=== PATIENT | female | born 1955 | race Two or more races ===

== ENCOUNTER 2024-07-21 05:15 | Day surgery (SDC) | payer OTHER ==
[2024-07-15 14:19] VITALS: BP 123/65
[~2024-07-21] VITALS: Ht 162.6 cm; Wt 111.6 kg
[~2024-07-21 05:15] MED LIST: CARDURA XL4 MG PO; ELIQUIS5 MG PO; HYDROCHLOROTHIA25 MG PO; MICARDIS80 MG PO; ROSUVASTATIN CA20 MG PO; SYNTHROID100 MCG PO
[2024-07-21] MEDS ORDERED: POVIDONE-IODINE 118 ML BOTT TOP SCH (11:15)
[2024-07-21] MEDS ORDERED: SUGAMMADEX SODIUM 200 MG/2 ML VIAL IV SCH (11:15)
[2024-07-21] MEDS ORDERED: IBU600 MG PO (12:10)
[2024-07-21] MEDS ORDERED: MORPHINE SULFATE 4 MG/ML VIAL IV ONE (12:20)
== END 2024-07-21 14:05 | disposition home or self-care (01) ==
LOC: CIR.AMB 05:15
PROVIDERS: ATTEND Obstetrics & Gynecology Gynecology
DX: C54.1 Malignant neoplasm of endometrium (principal); N95.0 Postmenopausal bleeding

== ENCOUNTER 2024-09-29 11:30 | Inpatient (IN) | payer OTHER ==
[~2024-09-29] VITALS: Ht 160 cm; Wt 108.9 kg
[~2024-09-29 11:30] MED LIST changes: +IBU600 MG PO
[2024-09-29 12:28] VITALS: BP 127/87
[2024-09-29 12:34] VITALS: BP 118/68
[2024-09-29 12:51] LABS: COVID-19 AG NEGATIVE (NEGATIVE)
[2024-10-02] MEDS ORDERED: CEFAZOLIN SODIUM 1,000 MG VIAL IV ONE (09:00)
[2024-10-02] MEDS ORDERED: THROMBIN,HU/FIBRINOGEN/CALCIUM 10 ML SYRINGE TOP ONE (09:00)
[2024-10-02] MEDS ORDERED: VISTASEAL DUAL APPICATOR 1 EACH APPL TOP ONE (09:00)
[2024-10-02] MEDS ORDERED: METRONIDAZOLE/SODIUM CHLORIDE 500 MG/100 ML PIGGYBACK IV ONE (09:00)
[2024-10-02] MEDS ORDERED: POVIDONE-IODINE 118 ML BOTT TOP ONE (09:00)
[2024-10-02] MEDS ORDERED: MORPHINE SULFATE 4 MG/ML CARTRIDGE IV PRN (11:00)
[2024-10-02] MEDS ORDERED: RINGERS SOLUTION,LACTATED 1,000 ML IV SCH (11:00)
[2024-10-02] MEDS ORDERED: ONDANSETRON HCL 2 MG/ML VIAL IV PRN (11:00)
[2024-10-02] MEDS ORDERED: OxyCODONE HCL 5 MG TABLET (ROXICODONE) PO PRN (11:00)
[2024-10-02] MEDS ORDERED: SUGAMMADEX SODIUM 200 MG/2 ML VIAL IV ONE (11:30)
[2024-10-02] MEDS ORDERED: MORPHINE SULFATE 4 MG/ML VIAL IV ONE ×2 (11:50→12:20)
[2024-10-02] MEDS ORDERED: KETOROLAC TROMETHAMINE 30 MG VIAL IM SCH (12:00)
[2024-10-02 13:51] LABS: BASO % 0.2 % (0.1-1.2); EOS # 0.05 (0.04-0.54); EOS % 0.5 % (0.7-7.0); LYMPH # 1.17 (1.18-3.74); LYMPH % 11.7 % (19.3-53.1); MEAN PLATELET VOLUME 9.90 fl (9.4-12.4); MONO # 0.52 (0.24-0.82); MONO % 5.2 % (4.7-12.5); NEUT # 8.23 (1.56-6.13); NEUT % 82.1 % (34.0-71.1); RED CELL DISTRIBUTION WIDTH 15.9 % (11.6-14.4)
[2024-10-02 14:38] VITALS: BP 127/87; O2SAT 97
[2024-10-02 14:48] LABS: BUN CREA RATIO 12.0 (7.0-25.0); CREATININE SERUM 0.66 mg/dL (0.55-1.02); GFR 88.8; GLUCOSE FASTING 128.0 mg/dL (65-100); OSMOLALITY SERUM 287.0 MOSM/KG (275-295)
[2024-10-02 16:35] VITALS: BP 123/71; O2SAT 95
[2024-10-02] MEDS ORDERED: GABAPENTIN 300 MG CAPSULE PO SCH (17:00)
[2024-10-02] MEDS ORDERED: CEFAZOLIN SODIUM 1,000 MG VIAL IV SCH (17:00)
[2024-10-02] MEDS ORDERED: FAMOTIDINE/PF 20 MG/2 ML VIAL IV PUSH SCH (21:00)
[2024-10-02] MEDS ORDERED: DOCUSATE SODIUM 100MG CAP PO SCH (21:00)
[2024-10-03 01:49] VITALS: BP 128/69; O2SAT 99
[2024-10-03 07:04] LABS: BASO % 0.3 % (0.1-1.2); EOS # 0.13 (0.04-0.54); EOS % 1.7 % (0.7-7.0); LYMPH # 1.19 (1.18-3.74); LYMPH % 15.3 % (19.3-53.1); MEAN PLATELET VOLUME 10.10 fl (9.4-12.4); MONO # 0.51 (0.24-0.82); MONO % 6.5 % (4.7-12.5); NEUT # 5.93 (1.56-6.13); NEUT % 75.9 % (34.0-71.1); RED CELL DISTRIBUTION WIDTH 16.1 % (11.6-14.4)
[2024-10-03 07:46] LABS: BUN CREA RATIO 13.0 (7.0-25.0); CREATININE SERUM 0.55 mg/dL (0.55-1.02); GFR 109.59; GLUCOSE FASTING 101.0 mg/dL (65-100); OSMOLALITY SERUM 281.0 MOSM/KG (275-295)
[2024-10-03 08:00] VITALS: BP 158/73; O2SAT 97
[2024-10-03] MEDS ORDERED: ENOXAPARIN SODIUM 40 MG/0.4 ML SYRINGE SUBCUTANEO SCH (09:00)
[2024-10-03] MEDS ORDERED: METOCLOPRAMIDE HCL 5 MG/ML VIAL IV SCH (09:00)
== END 2024-10-03 11:52 | disposition home or self-care (01) | DRG 740 ==
LOC: O/R 10-02 08:09 → SURG 10-02 11:30 → OB/GYN 10-02 12:27 → SURG 10-02 21:30 → OB/GYN 10-03 11:52
PROVIDERS: ADMIT Obstetrics & Gynecology Gynecologic Oncology; ATTEND Obstetrics & Gynecology Gynecologic Oncology
PROC: 0UT74ZZ Resection of Bilateral Fallopian Tubes, Percutaneous Endoscopic Approach (ICD-10-PCS; 2024-10-02)
PROC: 0UT24ZZ Resection of Bilateral Ovaries, Percutaneous Endoscopic Approach (ICD-10-PCS; 2024-10-02)
PROC: 07BC4ZZ Excision of Pelvis Lymphatic, Percutaneous Endoscopic Approach (ICD-10-PCS; 2024-10-02)
PROC: 8E0W4CZ Robotic Assisted Procedure of Trunk Region, Percutaneous Endoscopic Approach (ICD-10-PCS; 2024-10-02)
PROC: 0UT94ZZ Resection of Uterus, Percutaneous Endoscopic Approach (ICD-10-PCS; principal; 2024-10-02 21:30)
DX: C54.1 Malignant neoplasm of endometrium (principal); C77.5 Secondary and unspecified malignant neoplasm of intrapelvic lymph nodes; D27.0 Benign neoplasm of right ovary
CPT/HCPCS: 58548; S2900